=== PATIENT | female | born 2000 | race Caucasian/White ===

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

== ENCOUNTER → 2020-03-07 | Outpatient (CLI) | payer OTHER ==
[2020-03-07 13:12] LABS: BASO % 0.2 % (0.0-1.0); EOS # 0.3 10^3/uL (0.0-0.5); EOS % 6.8 % (0.0-3.0); HEMATOCRIT 38.3 % (36.0-47.0); LYMPH # 1.5 10^3/uL (1.5-5.0); LYMPH % 33.4 % (24.0-44.0); MEAN CORPUSCULAR HEMOGLOBIN 27.8 pg (27.0-33.0); MEAN CORPUSCULAR HGB CONC 31.3 g/dl (32.0-36.5); MEAN CORPUSCULAR VOLUME 88.7 fl (80.0-96.0); MONO # 0.4 10^3/uL (0.0-0.8); MONO % 9.4 % (0.0-5.0); NEUTROPHILS # 2.3 10^3/uL (1.5-8.5); PLATELET COUNT, AUTOMATED 266 10^3/uL (150-450); RED BLOOD COUNT 4.32 10^6/uL (4.00-5.40); WHITE BLOOD COUNT 4.6 10^3/uL (4.0-10.0)
[2020-03-07 13:43] LABS: ERYTHROCYTE SEDIMENTATION RATE 21 mm/hr (0-20)
[2020-03-07 13:51] LABS: ALBUMIN 3.4 GM/DL (3.2-5.2); ALT/SGPT 12 U/L (12-78); BILIRUBIN,DIRECT 0.1 MG/DL (0.0-0.2); BILIRUBIN,TOTAL 0.6 MG/DL (0.2-1.0); BLOOD UREA NITROGEN 13 MG/DL (7-18); C REACTIVE PROTEIN QUANTITATIV < 0.30 MG/DL (0.00-0.30); CREATININE FOR GFR 0.67 MG/DL (0.55-1.30); FERRITIN 7 NG/ML (8-252); IRON (FE) 68 UG/DL (50-170); PERCENT SATURATION 17.8 % (13.2-45.0); TOTAL IRON BINDING CAPACITY 383 UG/DL (250-450); TOTAL PROTEIN 7.2 GM/DL (6.4-8.2)
== END ==
LOC: M WUC 08:51
PROVIDERS: ATTEND Internal Medicine Gastroenterology
DX: K51.20 Ulcerative (chronic) proctitis without complications (principal)

== ENCOUNTER → 2020-04-06 | Outpatient (CLI) | payer OTHER | LOC: M WUC 12:25 | PROVIDERS: ATTEND Internal Medicine Gastroenterology | DX: K51.20 Ulcerative (chronic) proctitis without complications (principal) ==

== ENCOUNTER 2020-05-26 08:08 | Outpatient (CLI) | payer OTHER ==
[~2020-05-26] VITALS: Ht 170.2 cm; Wt 70.4 kg
[2020-05-26] MEDS ORDERED: VEDOLIZUMAB 300 MG in NS 250 ML IV ONE (08:30)
[2020-05-26 08:35] VITALS: BP 118/69
[2020-05-26 10:30] VITALS: BP 131/66
== END 2020-05-26 11:00 | disposition home or self-care (01) ==
LOC: M INFU 08:08
PROVIDERS: ATTEND Internal Medicine Gastroenterology
DX: K50.90 Crohn's disease, unspecified, without complications (principal)
CPT/HCPCS: 96365; J3380

== ENCOUNTER 2020-06-09 08:13 | Outpatient (CLI) | payer OTHER ==
[~2020-06-09] VITALS: Ht 170.2 cm; Wt 70.5 kg
[~2020-06-09 08:13] MED LIST changes: +VEDOLIZUMAB 300 MG in NS 250 ML IV ONE
[2020-06-09 08:23] VITALS: BP 120/62
[2020-06-09 09:23] VITALS: BP 117/90
== END 2020-06-09 09:30 | disposition home or self-care (01) ==
LOC: M INFU 08:13
PROVIDERS: ATTEND Internal Medicine Gastroenterology
DX: K50.90 Crohn's disease, unspecified, without complications (principal)
CPT/HCPCS: 96365; J3380

== ENCOUNTER 2020-07-07 08:19 | Outpatient (CLI) | payer OTHER ==
[~2020-07-07] VITALS: Ht 170.2 cm; Wt 70.5 kg
[~2020-07-07 08:19] MED LIST changes: -VEDOLIZUMAB 300 MG in NS 250 ML IV ONE
[2020-07-07] MEDS ORDERED: VEDOLIZUMAB 300 MG in NS 250 ML IV ONE (08:30)
[2020-07-07 08:36] VITALS: BP 129/70
[2020-07-07 08:41] VITALS: BP 129/70
[2020-07-07 09:30] VITALS: BP 130/79
== END 2020-07-07 09:30 | disposition home or self-care (01) ==
LOC: M INFU 08:19
PROVIDERS: ATTEND Internal Medicine Gastroenterology
DX: K50.90 Crohn's disease, unspecified, without complications (principal)
CPT/HCPCS: 96365; J3380

== ENCOUNTER → 2020-07-21 | Outpatient (CLI) | payer OTHER ==
[2020-07-21 16:05] LABS: BASO % 0.3 % (0.0-1.0); EOS % 0.5 % (0.0-3.0); HEMATOCRIT 36.7 % (36.0-47.0); HEMOGLOBIN 11.8 g/dl (12.0-15.5); MEAN CORPUSCULAR HEMOGLOBIN 27.8 pg (27.0-33.0); MEAN CORPUSCULAR HGB CONC 32.2 g/dl (32.0-36.5); MEAN CORPUSCULAR VOLUME 86.6 fl (80.0-96.0); MONO # 0.5 10^3/uL (0.0-0.8); MONO % 13.1 % (2.0-8.0); NEUTROPHILS # 2.2 10^3/uL (1.5-8.5); NEUTROPHILS % 60.1 % (36.0-66.0); PLATELET COUNT, AUTOMATED 241 10^3/uL (150-450); RED BLOOD COUNT 4.24 10^6/uL (4.00-5.40); WHITE BLOOD COUNT 3.7 10^3/uL (4.0-10.0)
[2020-07-21 16:38] LABS: C REACTIVE PROTEIN QUANTITATIV 0.64 MG/DL (0.00-0.30); ERYTHROCYTE SEDIMENTATION RATE 41 mm/hr (0-20)
== END ==
LOC: M WUC 13:52
PROVIDERS: ATTEND Internal Medicine Gastroenterology
DX: K50.10 Crohn's disease of large intestine without complications (principal); R19.7 Diarrhea, unspecified; D50.9 Iron deficiency anemia, unspecified

== ENCOUNTER → 2020-09-07 | Outpatient (CLI) | payer OTHER ==
[2020-09-07 12:40] LABS: C REACTIVE PROTEIN QUANTITATIV < 0.30 MG/DL (0.00-0.30)
[2020-09-07 13:42] LABS: VITAMIN B12 LEVEL 200 PG/ML
[2020-09-07 13:43] LABS: FOLATE 7.8 NG/ML
== END ==
LOC: M WUC 10:46
PROVIDERS: ATTEND Internal Medicine Gastroenterology
DX: R19.7 Diarrhea, unspecified (principal)

== ENCOUNTER → 2020-10-13 | Outpatient (REF) | payer OTHER ==
[2020-10-13 13:55] LABS: APPEARANCE, URINE CLOUDY (CLEAR); BACTERIA, URINE AUTO 2+ (NEGATIVE); BILIRUBIN, URINE AUTO NEGATIVE (NEGATIVE); BLOOD, URINE BLOOD 2+ (NEGATIVE); COLOR, URINE YELLOW (YELLOW); GLUCOSE, URINE (UA) AUTO NEGATIVE (NEGATIVE); KETONE, URINE AUTO NEGATIVE (NEGATIVE); LEUKOCYTE ESTERASE, URINE AUTO 2+ (NEGATIVE); MUCUS, URINE SMALL (NEGATIVE); NITRITE, URINE AUTO NEGATIVE (NEGATIVE); PROTEIN, URINE AUTO 1+ mg/dL (NEGATIVE); RBC, URINE AUTO 100 /HPF (0-3); SPECIFIC GRAVITY URINE AUTO 1.021 (1.002-1.035); SQUAMOUS EPITHELIAL CELL UR AU 14 /HPF (0-6); TRANSITIONAL EPITHELIAL AUTO 2 /HPF; UROBILINOGEN, URINE AUTO 0.2 mg/dL (0.0-2.0); WBC, URINE AUTO TNTC /HPF (0-3)
== END ==
LOC: M LAB REF 13:07
PROVIDERS: ATTEND Physician Assistant
DX: R39.9 Unspecified symptoms and signs involving the genitourinary system (principal)

== ENCOUNTER → 2020-10-18 | Outpatient (CLI) | payer OTHER ==
[2020-10-18 16:13] LABS: BASO % 0.3 % (0.0-1.0); EOS # 0.3 10^3/uL (0.0-0.5); EOS % 4.1 % (0.0-3.0); HEMATOCRIT 37.9 % (36.0-47.0); HEMOGLOBIN 12.3 g/dl (12.0-15.5); LYMPH # 1.3 10^3/uL (1.5-5.0); LYMPH % 19.8 % (24.0-44.0); MEAN CORPUSCULAR HEMOGLOBIN 28.4 pg (27.0-33.0); MEAN CORPUSCULAR HGB CONC 32.5 g/dl (32.0-36.5); MEAN CORPUSCULAR VOLUME 87.5 fl (80.0-96.0); MONO # 0.6 10^3/uL (0.0-0.8); MONO % 9.2 % (2.0-8.0); NEUTROPHILS # 4.2 10^3/uL (1.5-8.5); NEUTROPHILS % 66.4 % (36.0-66.0); PLATELET COUNT, AUTOMATED 280 10^3/uL (150-450); RED BLOOD COUNT 4.33 10^6/uL (4.00-5.40); WHITE BLOOD COUNT 6.3 10^3/uL (4.0-10.0)
[2020-10-18 16:46] LABS: ALBUMIN 3.2 GM/DL (3.2-5.2); ALT/SGPT 13 U/L (12-78); BILIRUBIN,TOTAL 0.4 MG/DL (0.2-1.0); BLOOD UREA NITROGEN 8 MG/DL (7-18); CALCIUM LEVEL 8.9 MG/DL (8.5-10.1); CARBON DIOXIDE LEVEL 27 MEQ/L (21-32); CHLORIDE LEVEL 107 MEQ/L (98-107); FREE T4 1.02 NG/DL (0.78-1.33); GLUCOSE, FASTING 87 MG/DL (70-100); IRON (FE) 50 UG/DL (50-170); MAGNESIUM LEVEL 2.1 MG/DL (1.4-2.0); PERCENT SATURATION 12.8 % (13.2-45.0); POTASSIUM SERUM 4.4 MEQ/L (3.5-5.1); SODIUM LEVEL 137 MEQ/L (136-145); TOTAL IRON BINDING CAPACITY 391 UG/DL (250-450); TOTAL PROTEIN 7.3 GM/DL (6.4-8.2)
[2020-10-20 16:08] LABS: ANTINUCLEAR ANTIBODIES DIRECT Negative (Negative); Lyme Disease IgG/IgM Antibodie <0.91 ISR (0.00-0.90); Lyme Disease IgM Ab Quantitati <0.80 index (0.00-0.79); SJOGREN'S ANTI SS-A <0.2 AI (0.0-0.9); SJOGREN'S ANTI SS-B <0.2 AI (0.0-0.9); TISSUE TRANSGLUTAMINASE IgA <2 U/mL (0-3); TISSUE TRANSGLUTAMINASE IgG <2 U/mL (0-5); TRANSFERRIN 302 mg/dL (192-364)
== END ==
LOC: M WUC 14:06
PROVIDERS: ATTEND Nurse Practitioner Family
DX: L92.9 Granulomatous disorder of the skin and subcutaneous tissue, unspecified (principal); R53.83 Other fatigue; D50.9 Iron deficiency anemia, unspecified

== ENCOUNTER → 2020-10-25 | Outpatient (CLI) | payer OTHER ==
[2020-10-25 18:49] LABS: HEPATITIS C VIRUS ABY INDEX 0.1 INDEX (<0.8); HIV 1&2 SCREEN CENTAUR NEGATIVE (NEGATIVE)
[2020-10-25 20:31] LABS: GC DNA AMPLIFICATION NEGATIVE (NEGATIVE)
== END ==
LOC: M PLALAB 13:55
PROVIDERS: ATTEND Advanced Practice Midwife
DX: Z11.3 Encounter for screening for infections with a predominantly sexual mode of transmission (principal)

== ENCOUNTER → 2021-11-07 | Outpatient (REF) | payer BC ==
[2021-11-07 18:11] LABS: GC DNA AMPLIFICATION NEGATIVE (NEGATIVE)
== END ==
LOC: M PLALAB 10:41
PROVIDERS: ATTEND Advanced Practice Midwife
DX: Z11.3 Encounter for screening for infections with a predominantly sexual mode of transmission (principal)

== ENCOUNTER → 2022-04-19 | Outpatient (CLI) | payer BC ==
[2022-04-19 14:03] LABS: BASO % 0.5 % (0.0-1.0); EOS # 0.4 10^3/uL (0.0-0.5); EOS % 9.4 % (0.0-3.0); HEMATOCRIT 38.1 % (36.0-47.0); HEMOGLOBIN 12.2 g/dl (12.0-15.5); LYMPH # 1.3 10^3/uL (1.5-5.0); MEAN CORPUSCULAR HEMOGLOBIN 27.7 pg (27.0-33.0); MEAN CORPUSCULAR VOLUME 86.6 fl (80.0-96.0); MONO # 0.3 10^3/uL (0.0-0.8); MONO % 7.8 % (2.0-8.0); NEUTROPHILS # 2.3 10^3/uL (1.5-8.5); NEUTROPHILS % 52.1 % (36.0-66.0); PLATELET COUNT, AUTOMATED 249 10^3/uL (150-450); WHITE BLOOD COUNT 4.4 10^3/uL (4.0-10.0)
[2022-04-19 14:24] LABS: MAGNESIUM LEVEL 1.8 MG/DL (1.8-2.4)
[2022-04-19 14:25] LABS: IRON (FE) 98 UG/DL (50-170); PERCENT SATURATION 25.5 % (13.2-45.0); TOTAL IRON BINDING CAPACITY 385 UG/DL (250-425)
[2022-04-19 14:26] LABS: ALBUMIN 3.4 G/DL (3.2-5.2); ALKALINE PHOSPHATASE 72 U/L (46-116); ALT/SGPT < 9 U/L (7.0-40); AST/SGOT 16 U/L (<34); BILIRUBIN,TOTAL 0.6 MG/DL (0.3-1.2); BLOOD UREA NITROGEN 9 MG/DL (9-23); CALCIUM LEVEL 9.4 MG/DL (8.5-10.1); CARBON DIOXIDE LEVEL 27 MMOL/L (20-31); CHLORIDE LEVEL 105 MMOL/L (98-107); CREATININE FOR GFR 0.64 MG/DL (0.55-1.30); FERRITIN 5.8 NG/ML (7.3-270.7); GLOMERULAR FILTRATION RATE > 60.0 (>60); GLUCOSE, FASTING 100 MG/DL (60-100); POTASSIUM SERUM 4.4 MMOL/L (3.5-5.1); SODIUM LEVEL 139 MMOL/L (136-145); TOTAL PROTEIN 7.1 G/DL (5.7-8.2)
[2022-04-19 14:27] LABS: THYROID STIMULATING HORMONE 2.175 uIU/ML (0.55-4.78); TOTAL 25(OH) VITAMIN D 12.8 NG/ML (20.0-100.0)
[2022-04-19 14:28] LABS: FOLATE 8.3 NG/ML (>5.4); FREE T4 1.16 NG/DL (0.89-1.76); VITAMIN B12 LEVEL 228 PG/ML (211-911)
[2022-04-23 17:07] LABS: Methylmalonic Acid 317 nmol/L (0-378)
== END ==
LOC: M PLALAB 10:44
PROVIDERS: ATTEND Nurse Practitioner Family
DX: R53.83 Other fatigue (principal)

== ENCOUNTER → 2023-03-07 | Outpatient (REF) | payer BC ==
[2023-03-07 17:38] LABS: CHLAMYDIA DNA AMPLIFICATION POSITIVE (NEGATIVE); GC DNA AMPLIFICATION NEGATIVE (NEGATIVE)
== END ==
LOC: M PLALAB 13:44
PROVIDERS: ATTEND Advanced Practice Midwife
DX: Z12.4 Encounter for screening for malignant neoplasm of cervix (principal); Z11.3 Encounter for screening for infections with a predominantly sexual mode of transmission
CPT/HCPCS: 87661; 87810; 87850; G0123